=== PATIENT | male | born 1980 | race African-American/Black ===

== ENCOUNTER 2016-09-21 10:54 | Emergency (ER) | payer MEDICAID ==
[~2016-09-21] VITALS: Ht 175.3 cm; Wt 104.3 kg
[2016-09-21 11:59] VITALS: BP 124/83
[2016-09-21] MEDS ORDERED: KETOROLAC TROMETH 60MG/2ML VIAL IM ONE (13:15)
== END 2016-09-21 13:28 | disposition home or self-care (01) ==
LOC: ER 11:02
DX: S33.5XXA Sprain of ligaments of lumbar spine, initial encounter (principal); W18.2XXA Fall in (into) shower or empty bathtub, initial encounter; Y93.89 Activity, other specified; Y99.8 Other external cause status; Y92.89 Other specified places as the place of occurrence of the external cause
CPT/HCPCS: 72110; 96372; 99284; J1885

== ENCOUNTER 2016-10-31 11:02 | Emergency (ER) | payer MEDICAID ==
[~2016-10-31] VITALS: Ht 172.7 cm; Wt 104.3 kg
[2016-10-31 11:04] VITALS: BP 131/89
[2016-10-31] MEDS ORDERED: HYDROcodone-ACET 5/325MG TAB PO ONE (12:30)
[2016-10-31] MEDS ORDERED: CYCLOBENZAPRINE HCL 10 MG TAB PO ONE (12:30)
== END 2016-10-31 13:06 | disposition home or self-care (01) ==
LOC: ER 11:02
DX: M54.5 Low back pain (principal); M62.830 Muscle spasm of back